=== PATIENT | female | born 1995 | race Caucasian/White ===

== ENCOUNTER 2024-04-08 17:28 | Emergency (ER) | payer OTHER, SELFPAY ==
--- NOTE | ~2024-04-08 | CT_ITS ---
EXAMINATION: CT HEAD WITHOUT CONTRAST CT FACIAL BONES WITHOUT CONTRAST CT CERVICAL SPINE WITHOUT CONTRAST CLINICAL INFORMATION: Pain. Injury. COMPARISON: None available. TECHNIQUE: Imaging was performed from the skull base to vertex without intravenous administration of contrast. In addition, helical noncontrast CT imaging was acquired through the cervical spine and facial bones and source images were reviewed along with axial reconstructions and sagittal and coronal MPRs. This CT examination was performed using dose optimization techniques as appropriate, variously including the following: *Automated exposure control. *Adjustment of mA and/or kV according to patient size (this includes techniques or standardized protocols for targeted exams where dose is matched to indication/reason for exam; i.e. extremities or head). *Use of iterative reconstruction technique. DLP: 1256 mGy-cm FINDINGS: Head: There is no evidence of acute intracranial hemorrhage or edematous territorial infarction. Reddy-white matter differentiation is preserved. There is no abnormal attenuation within the brain parenchyma. The ventricles are normal in morphology and size. No evidence for obstructive hydrocephalus. No abnormal mass effect or midline shift. No extra-axial fluid collections. No acute soft tissue or osseous abnormalities. Maxillofacial Bones: No evidence of maxillofacial bone fractures. The zygomatic arches remain intact. No nasal bone fracture. The nasal septum remains midline. No evidence of mandibular or maxillary fracture. The mandibular condyles remain well-seated in their respective temporal articular grooves. Normal appearance of the intraconal and extraconal fat. No evidence of traumatic injury to the extraocular musculature or globes. Moderate mucosal thickening of the paranasal sinuses. The mastoid air cells and middle ear cavities are clear. No layering fluid collections. Periapical lucency associated with the mandibular left 2nd premolar. Cervical Spine: The atlantooccipital and atlantoaxial articulations remain well aligned. Straightening of the normal cervical lordosis. Otherwise, there is anatomic alignment of the vertebral bodies and posterior elements. No evidence of acute fracture or subluxation. The vertebral body heights and disc spaces are maintained. There is no prevertebral soft tissue swelling. The thyroid gland and remaining cervical soft tissues are within normal limits. The lung apices demonstrate no abnormalities. CT/CT cervical spine wo IV con IMPRESSION: 1. No evidence of acute intracranial hemorrhage or edematous territorial infarction. 2. No evidence of acute fracture or traumatic subluxation of the cervical spine. 3. No evidence of acute fracture of the maxillofacial bones. Electronically signed by: Alexsander Mendenhall DO 04/08/2024 06:32 PM EDT RP
[2024-04-08 17:30] VITALS: BP 132/86; PULSE 100; RESP 19; TEMP 36.6; O2SAT 98; BMI 31.1
--- NOTE | 2024-04-08 17:30 | ED_ITS ---
HPI - General Adult General Chief complaint: Wound/Laceration Stated complaint: Head inj Time Seen by Provider: 04/08/24 19:12 Source: patient Mode of arrival: ambulatory Limitations: no limitations History of Present Illness ED Provider: Cynthia Donnelly PA-C HPI narrative: Patient is a 28 year old assigned female at with no reported medical history presenting to the emergency department today with a facial laceration. Patient states that she was at a softball game today and collided with a catcher. Patient states that she did not lose consciousness. Patient denies any dizziness, lightheadedness, abdominal pain, nausea, vomiting, fever, chills, blurry vision, double vision, loss of vision, chest pain, difficulty breathing, shortness of breath, back pain, night sweats, pain with urination, increased urinary frequency, increased urinary urgency, blood in her urine or stool, syncope or a near syncopal episode, bowel incontinence, bladder incontinence, or any other complaints at this time. Relieving factors: none Exacerbating factors: none Associated symptoms: denies other symptoms Treatments prior to arrival: none Related Data Previous Rx's ?Medication ?Instructions ?Recorded cephalexin 500 mg capsule 500 mg PO Q6H 7 days #28 caps 04/08/24 ondansetron 4 mg disintegrating 4 mg PO Q8H 3 days #9 tabs 04/08/24 tablet Allergies Allergy/AdvReac Type Severity Reaction Status Date / Time apple Allergy Itching Verified 04/08/24 17:33 keene [cherries] Allergy Anaphylaxis Verified 04/08/24 17:33 peach Allergy Hives Verified 04/08/24 17:33 Review of Systems 2 Constitutional: Constitutional: Reports no additional constitutional complaints, Denies chills, Denies fever(s) and Denies night sweats Eyes: Eyes: Reports no additional eye complaints, Denies blurry vision, Denies change in vision, Denies diplopia, Denies eye discharge, Denies loss of vision and Denies eye pain ENT: Denies dizziness Comments: left facial cheek laceration Cardiovascular: Cardiovascular: Reports no additional cardiovascular complaints, Denies chest pain, Denies lightheadedness, Denies Loss of Consciousness and Denies dyspnea Respiratory: Respiratory: Reports no additional respiratory complaints and Denies dyspnea Gastrointestinal: Gastrointestinal: Reports no additional gastrointestinal complaints, Denies abdominal pain, Denies melena, Denies hematochezia, Denies change in bowel habits and Denies change in stool character Genitourinary: Genitourinary: Denies hematuria, Denies urinary frequency, Denies dysuria, Denies urinary incontinence, Denies urinary hesitancy and Denies urinary urgency Musculoskeletal: Musculoskeletal: Reports no additional musculoskeletal complaints, Denies numbness and Denies tingling Neurologic: Denies dizziness, Denies loss of vision, Denies numbness and Denies tingling Psychiatric: Psychiatric: Reports no additional psychiatric complaints Endocrine: Endocrine: Reports no additional endocrine complaints Hematologic/Lymphatic: Hematologic/Lymphatic: Reports no additional hematologic/lymphatic complaints Allergic/Immunologic: Allergic/Immunologic: Reports no additional allergic/immunologic complaints PMFSH Past Medical History Attestation statement: The following information was validated with the patient. Source: old records reviewed and nursing notes reviewed Social History Social History Advance Directives: No Advance Directives Information Provided: No Physical Exam ED Vital Signs: Vital Signs - 24 hr 04/08/24 17:30 04/08/24 18:42 Temperature 98 F 98.4 F Pulse Rate 100 78 Respiratory Rate 19 17 Blood Pressure 132/86 114/72 Pulse Oximetry 98 97 Oxygen Delivery Method Room Air Room Air BMI result Body Mass Index 31.1 Const General: cooperative, no acute distress, alert and awake Nutritional Appearance: well nourished Orientation/consciousness: patient oriented x3 Limitations: no limitations [facility] Head: Yes normal to inspection and Yes atraumatic Ears: hearing grossly normal bilaterally and external ears normal General nose exam: Normal external nose present, no nasal discharge noted and no epistaxis Face images: 2 1. 0.5cm laceration - no active bleeding Mouth: Normal oral and palatal mucosa present, no drooling and no muffled voice Eyes General: appearance normal, both eyes and all related structures Periorbital: periorbital findings normal Eyelids: Yes eyelids normal Conjunctivae: conjunctivae normal Pupils: Equal, round and reactive pupils present EOM: EOMs intact bilaterally Neck Neck: Yes normal visual inspection, Yes full ROM and Yes no lymphadenopathy Chest Chest palpation & inspection: normal inspection of the chest Resp Effort & Inspection: normal respiratory effort and able to speak in complete sentences GI Inspection: Yes normal to inspection Neuro General: patient oriented x3 and moves all extremities Cranial nerves: Yes Equal, round and reactive pupils present Cognition (Neuro): normal cognition Extrem General: Yes normal to inspection, Yes full ROM and Yes capillary refill normal Psych Appearance: grossly normal Mental Status: mental status grossly normal Affect: normal affect Attitude: cooperative Thought process: Normal thought process present Thought content: Normal thought content present Insight: Good insight present (Psych) Course Course Course Narrative: RME performed by Cynthia Donnelly PA-C. Patient is a 28 year old assigned female at presenting to the emergency department with a left face laceration. Patient states she collided with the catcher at a softball game and her glasses cut her face. Detailed physical exam and review of systems are deferred to the street light cleaner. Imaging ordered. Patient placed back in the waiting room pending room availability and results. Medications Administered Discontinued Medications Generic Name Dose Route Start Last Admin Trade Name Alcidesq PRN Reason Stop Dose Admin Acetaminophen 975 mg 04/08/24 20:29 04/08/24 20:42 Acetaminophen 325 Mg Tablet PO 04/08/24 20:30 975 mg ONCE ONE Administration Diphtheria/Tetanus/Acell Pertussis 0.5 ml 04/08/24 17:33 04/08/24 18:33 Diphth,Pertus(Acell),Tet Adult 0.5 Ml Syringe IM 04/08/24 17:34 0.5 ml .ONCE ONE Administration Ketorolac Tromethamine 15 mg 04/08/24 20:29 04/08/24 20:37 Ketorolac Tromethamine 15 Mg/Ml Vial IM 04/08/24 20:30 15 mg ONCE ONE Administration Ondansetron HCl 4 mg 04/08/24 20:33 04/08/24 20:36 Ondansetron Odt 4 Mg Tab.Rapdis TRANSLINGU 04/08/24 20:34 4 mg ONCE ONE Administration Lidocaine/Epinephrine/Tetracaine 1 ml 04/08/24 19:45 04/08/24 19:52 Lidocaine/Racepinep/Tetracaine 3 Ml Gel.Pf.Thom TOPICAL 04/08/24 19:46 1 ml ONCE ONE Administration Procedures Laceration Laceration 1: Site: face Side (If applicable): left Size (cm): 0.5 Description: irregular Depth: simple, single layer Local Anesthetic: other anesthetic (LET) Pre-repair: wound explored, irrigated extensively and deep structures intact Skin layer closed with: other (prolene) Size (cm): 6-0 Number of sutures: 2 Technique: simple, interrupted Medical Decision Making Medical Decision Making MDM Narrative: Patient is a 28 year old assigned female at with no reported medical history presenting to the emergency department today with a left facial laceration. Patient's physical exam showed a left facial cheek laceration approximately 0.5cm with jagged edges and no active bleeding. Patient's CT head, c-spine and facial bones showed no acute process. I explained my physical exam findings as well as all test results to the patient. I answered all questions asked by the patient. Patient's laceration was repaired, without incident. Patient was given suture instructions as noted in the follow up instructions portion of this note. I stressed the importance of the patient taking her medication as directed (either prescribed or as the over the counter packaging recommends). I stressed the importance of the patient following up with her primary care provider. I stressed the importance of the patient returning to the emergency department immediately if her symptoms were to worsen or if she were to develop any dizziness, shortness of breath, difficulty breathing, chest pain, blurry vision, loss of vision, nausea, vomiting, abdominal pain, fever, chills, back pain, or any other complaints. Patient verbalized agreement and understanding with this treatment plan and discharge. Differential Diagnosis Differential Diagnoses: The differential diagnosis associated with the presentation includes Facial laceration Concussion Admission/Observation Consideration of admission/observation: Escalation of care including admission/observation considered Patient would have been admitted to the hospital had her work up had any findings where hospital admission was appropriate and her clinical presentation warranted hospital admission. Independent Interpretation I performed an independent interpretation of an: CT Scan Interpretation: My interpretation is in agreement with the radiologist's impression of these imaging studies. - EXAMINATION: CT HEAD WITHOUT CONTRAST CT FACIAL BONES WITHOUT CONTRAST CT CERVICAL SPINE WITHOUT CONTRAST CLINICAL INFORMATION: Pain. Injury. COMPARISON: None available. TECHNIQUE: Imaging was performed from the skull base to vertex without intravenous administration of contrast. In addition, helical noncontrast CT imaging was acquired through the cervical spine and facial bones and source images were reviewed along with axial reconstructions and sagittal and coronal MPRs. This CT examination was performed using dose optimization techniques as appropriate, variously including the following: *Automated exposure control. *Adjustment of mA and/or kV according to patient size (this includes techniques or standardized protocols for targeted exams where dose is matched to indication/reason for exam; i.e. extremities or head). *Use of iterative reconstruction technique. DLP: 1256 mGy-cm FINDINGS: Head: There is no evidence of acute intracranial hemorrhage or edematous territorial infarction. Reddy-white matter differentiation is preserved. There is no abnormal attenuation within the brain parenchyma. The ventricles are normal in morphology and size. No evidence for obstructive hydrocephalus. No abnormal mass effect or midline shift. No extra-axial fluid collections. No acute soft tissue or osseous abnormalities. Maxillofacial Bones: No evidence of maxillofacial bone fractures. The zygomatic arches remain intact. No nasal bone fracture. The nasal septum remains midline. No evidence of mandibular or maxillary fracture. The mandibular condyles remain well-seated in their respective temporal articular grooves. Normal appearance of the intraconal and extraconal fat. No evidence of traumatic injury to the extraocular musculature or globes. Moderate mucosal thickening of the paranasal sinuses. The mastoid air cells and middle ear cavities are clear. No layering fluid collections. Periapical lucency associated with the mandibular left 2nd premolar. Cervical Spine: The atlantooccipital and atlantoaxial articulations remain well aligned. Straightening of the normal cervical lordosis. Otherwise, there is anatomic alignment of the vertebral bodies and posterior elements. No evidence of acute fracture or subluxation. The vertebral body heights and disc spaces are maintained. There is no prevertebral soft tissue swelling. The thyroid gland and remaining cervical soft tissues are within normal limits. The lung apices demonstrate no abnormalities. CT/CT head/brain wo IV con IMPRESSION: 1. No evidence of acute intracranial hemorrhage or edematous territorial infarction. 2. No evidence of acute fracture or traumatic subluxation of the cervical spine. 3. No evidence of acute fracture of the maxillofacial bones. Electronically signed by: Alexsadner Mendenhall DO 04/08/2024 06:32 PM EDT Dictated By: Saurabh Mendenhall DO Signed By: Electronically signed by Saurabh Mendenhall DO 04/08/24 1832 Prescription Management I considered prescription management with: Antibiotic (given the patient's mechanism of injury - I prescribed her prophylactic antibiotic) Discharge Plan Discharge Clinical Impression: Laceration, Concussion Patient Disposition: Home, Self-Care Instructions: Care For Your Stitches (DC), Concussion (ED) Additional Instructions: Have your sutures removed in 7-10 days. Do NOT soak the affected area. Take your antibiotic as prescribed. Once your sutures are out and whatever scab remains falls off, apply sunscreen every day to the area for 1 year to help prevent scarring. Follow up with your primary care provider. Return to the emergency department immediately if your symptoms worsen or if you develop any dizziness, shortness of breath, difficulty breathing, chest pain, blurry vision, loss of vision, nausea, vomiting, abdominal pain, fever, chills, back pain, or any other complaints. Prescriptions: New cephalexin 500 mg capsule 500 mg PO Q6H 7 Days Qty: 28 0RF ondansetron 4 mg tablet,disintegrating 4 mg PO Q8H 3 Days Qty: 9 0RF Referrals: Ezra Martinez MD [Primary Care Provider] - Stand Alone Forms: Work/School Release Discharge Date/Time: 04/08/24 20:53 Print Language: Ivorian
--- OUTSIDE RECORDS SUMMARY | 2024-04-08 18:30 | XMS_ITS | Continuity of Care Document ---
Author Organization [facility] Address [address] [place] [address]- Care Team Providers Care Psychiatric Rn Name Role Phone Julianna MUHAMMAD, Sis Ibarra Primary Care Physician Encounter [facility] Date(s): 04/02/21 - 05/02/21 [facility] [address] [place], [place] [address] Attending Physician: Admtr, Ar8 Admitting Physician: Admtr, Ar8 Referring Physician: Admtr, Ar8 Allergies, Adverse Reactions, Alerts Substance Reaction Severity Status NKA Active
--- OUTSIDE RECORDS SUMMARY | 2024-04-08 18:30 | XMS_ITS | Continuity of Care Document ---
Author Organization [facility] Address [address] [place] [address]- Care Team Providers Care Intelligence Manager Name Role Phone Julianna MUHAMMAD, Sis Ibarra Primary Care Physician Encounter [facility] Date(s): 04/02/21 - 04/09/21 [facility] [address] [place] [address]- Attending Physician: Wagner Ugarte Referring Physician: Ezra Martinez DO Allergies, Adverse Reactions, Alerts Substance Reaction Severity Status NKA Active
--- OUTSIDE RECORDS SUMMARY | 2024-04-08 18:30 | XMS_ITS | Continuity of Care Document ---
Author Organization [facility] Address [address] [place] [address]- Care Team Providers Care Special Education Educational Assistant Name Role Phone Julianna MUHAMMAD, Sis Ibarra Primary Care Physician Encounter [facility] Date(s): 03/11/21 - 03/18/21 [facility] [address] [place], [place] [address] Encounter Diagnosis Sore throat(Discharge Diagnosis) - 03/11/21 Nasal congestion(Discharge Diagnosis) - 03/11/21 Attending Physician: Moreno Arriaza MD Referring Physician: Sis Levine MD Allergies, Adverse Reactions, Alerts Substance Reaction Severity Status NKA Active Medications amoxicillin 875 mg oral tablet 1 tablet = 875 mg, By Mouth, 2 times a day, for 10 days, # 20 tablet, 0 Refills, Acute 03/21/21 10:19:00 EDT, 03/11/21 10:19:00 EDT, Tablet, [id number], Partial fill upon patient request if the prescription is for a schedule II opioid drug. Start Date: 03/11/21 Stop Date: 03/21/21 Status: Ordered Problem List Diagnosis Diagnosis Type Effective Dates Health Status Clinical Service Informant Sore throat Discharge Diagnosis 03/11/21 Nasal congestion Discharge Diagnosis 03/11/21
--- OUTSIDE RECORDS SUMMARY | 2024-04-08 18:30 | XMS_ITS | Continuity of Care Document ---
Author Organization [facility] Address [address] [place] [address]- Care Team Providers Care Electro Mechanical Technician Name Role Phone Sis Levine MD Primary Care Physician ( [phone] Encounter [facility] Date(s): 12/09/20 - 12/09/[address] [address]- Discharge Disposition: A-D/C Walkout Attending Physician: Not on Staff, Attending MD Admitting Physician: Not on Staff, Admitting MD Referring Physician: Not on Staff, Referring MD Allergies, Adverse Reactions, Alerts Substance Reaction Severity Status NKA Active Results Radiology Reports * Exam Date Time Procedure Performing Provider Status 12/09/20 4:56 AM Chest Portable Harris Das ( Verified) Notes: (Chest Portable) Reason For Exam: Shortness of Breath RESULT: Chest Portable Examination: Portable chest performed on 12/09/2020. History: Shortness of breath. Congestion. Findings: A frontal view of the chest is submitted without comparison. The cardiac and mediastinal silhouettes are within normal limits. The lungs are clear. The osseous and soft tissue structures are unremarkable. IMPRESSION: There is no acute cardiopulmonary disease. WSN: [id number] Ordering Physician: Brennan Bar Dictated By: Nessa Woods MD Dictated Date/Time: 12/09/20 8:28 am Reviewed By: Nessa Woods MD Signed By: Nessa Woods MD Signed Date/Time: 12/09/20 8:28 am Transcribed By: ARYA Transcribed Date/Time: 12/09/20 8:27 am Vital Signs Most recent to oldest [Reference Range]: 1 2 Oxygen Saturation [94-100 %] 100 % (12/09/20 7:03 AM) 99 % (12/09/20 4:41 AM) Pulse Rate [55-90 bpm] 71 bpm (12/09/20 7:03 AM) 54 bpm *L* (12/09/20 4:41 AM) Blood Pressure [90-138/55-84 mm Hg] 141/ 87mm Hg *H* (12/09/20 7:03 AM) 142/81mm Hg *H* (12/09/20 4:41 AM) Respiratory Rate [16-30 br/min] 16 br/mi n (12/09/20 7:03 AM) 18 br/min (12/09/20 4:41 AM) Temperature [96.8-100.4 DegF] 97.7 DegF (12/09/20 7:03 AM) 97.6 DegF (12/09/20 4:41 AM) Mode of Delivery (Oxygen) Room air (12/09/20 7:03 AM) Room air (12/09/20 4:41 AM) Blood pressure sites Arm, left (12/09/20 7:03 AM) Arm, right (12/09/20 4:41 AM) Temperature Route Oral (12/09/20 7:03 AM) Oral (12/09/20 4:41 AM)
[2024-04-08] MEDS: Diphth,Pertus(ACell),Tet Adult 0.5 ML SYRINGE IM (18:33)
[2024-04-08 18:42] VITALS: BP 114/72; PULSE 78; RESP 17; TEMP 36.9; O2SAT 97
[2024-04-08] MEDS: Lidocaine/Racepinep/Tetracaine 3 ML GEL.PF.APP 1 ML TOPICAL (19:52)
[2024-04-08] MEDS: Ondansetron ODT 4 MG TAB.RAPDIS TRANSLINGU (20:36)
[2024-04-08] MEDS: Ketorolac Tromethamine 15 MG/ML VIAL IM (20:37)
[2024-04-08] MEDS: Acetaminophen 325 MG TABLET 975 MG PO (20:42)
== END 2024-04-08 20:53 | disposition home or self-care (01) ==
PROVIDERS: Emergency Provider Emergency Medicine; PCP Internal Medicine
DX: S01.81XA Laceration without foreign body of other part of head, initial encounter (principal); R51.9 Headache, unspecified; M54.2 Cervicalgia; Y29.XXXA Contact with blunt object, undetermined intent, initial encounter; Y93.64 Activity, baseball; Y92.320 Baseball field as the place of occurrence of the external cause; Y99.8 Other external cause status; Z79.899 Other long term (current) drug therapy
CPT/HCPCS: 12051; 70450; 70486; 72125; 90471; 90715; 96372; 99283; 99284; J1885